=== PATIENT | male | born 1970 | race Caucasian/White ===

== ENCOUNTER 2021-08-22 13:46 | Emergency (ER) | payer OTHER ==
[~2021-08-22] VITALS: Ht 188 cm; Wt 86.2 kg
[~2021-08-22 13:46] MED LIST: ZOFRAN4 MG/5 ML PO
[2021-08-22 14:29] LABS: ABSOLUTE BASOPHILS 0.1 thou/uL (0.0-0.2); ABSOLUTE EOSINOPHILS 0.1 thou/uL (0.0-0.7); ABSOLUTE LYMPHOCYTES 3.1 thou/uL (0.8-5.3); ABSOLUTE MONOCYTES 0.5 thou/uL (0.0-1.2); ABSOLUTE NEUTROPHILS 6.2 thou/uL (1.6-8.1); BASOPHILS 1.3 %; EOSINOPHILS 1.1 %; HEMATOCRIT 41.5 % (42.0-52.0); HEMOGLOBIN 14.1 gm/dL (14.0-18.0); LYMPHOCYTES 30.7 %; MCH 32.5 pg (26.0-34.0); MCV 95.5 fL (80.0-100.0); MONOCYTES 4.9 %; MPV 7.9 fl. (7.2-11.1); NUCLEATED RBCS 0 /100WBC; PLATELET COUNT* 186 thou/uL (150-400); RBC 4.35 mil/uL (4.50-6.00); RDW-CV 12.2 % (10.5-14.5)
[2021-08-22 14:36] LABS: CALCIUM 8.5 mg/dL (8.5-10.1)
[2021-08-22 14:38] LABS: APTT 26.4 Seconds (25.0-31.3); INR 0.9; PROTIME 9.6 Seconds (9.20-11.50)
[2021-08-22 14:40] LABS: ALBUMIN 4.2 g/dL (3.4-5.0); MAGNESIUM 1.8 mg/dL (1.8-2.4); TOTAL BILIRUBIN 0.9 mg/dL (<0.1-1.0); TOTAL PROTEIN 8.1 g/dL (6.4-8.2)
[2021-08-22 15:17] LABS: ALCOHOL 343 mg/dL (<10); SALICYLATE < 2.8 mg/dL (2.8-20.0)
[2021-08-22 15:18] LABS: ACETAMINOPHEN < 2 ug/mL (10-30)
[2021-08-22] MEDS ORDERED: NEURONTIN 400400 M1 PO ×2 (15:47→15:51)
[2021-08-22] MEDS ORDERED: ZOFRAN ODT4 MG PO (15:49)
[2021-08-22 16:04] VITALS: BP 107/73
--- NOTE | 2021-08-23 11:39 | EKG ---
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
== END 2021-08-22 16:06 | disposition home or self-care (01) ==
LOC: M.ERS 13:46
PROVIDERS: Nurse Practitioner Family
DX: F10.229 Alcohol dependence with intoxication, unspecified (principal); Z20.822 Contact with and (suspected) exposure to COVID-19; M79.18 Myalgia, other site; I10 Essential (primary) hypertension; F17.210 Nicotine dependence, cigarettes, uncomplicated; Z79.899 Other long term (current) drug therapy; Y90.8 Blood alcohol level of 240 mg/100 ml or more